=== PATIENT | female | born 1995 | race African-American/Black ===

== ENCOUNTER 2021-11-07 08:50 | Emergency (ER) | payer OTHER ==
--- NOTE | 2021-11-07 09:09 | ED Physician Documentation ---
PD HPI ABD PAIN - Stated complaint Stated Complaint: SPOTTING/ABD PX - Chief complaint Chief Complaint: Abd Pain - History obtained from History obtained from: Patient - Additional information Additional information: 26-year-old G2, with LMP Oct 06 presents with vaginal bleeding in . She went to [facility] 2 days ago for light bleeding, per her description at that time her beta hCG was 600 and her ultrasound was nondiagnostic. Heavier bleeding today. There is no pain. Review of Systems Ten Systems: 10 systems reviewed and negative Constitutional: reports: Reviewed and negative Cardiac: reports: Reviewed and negative Respiratory: reports: Reviewed and negative PD PAST MEDICAL HISTORY - Present Medications Home Medications: Ambulatory Orders Medication Instructions Recorded Confirmed No Known Home Medications 11/07/21 11/07/21 - Allergies Allergies/Adverse Reactions: Allergies Allergy/AdvReac Type Severity Reaction Status Date / Time No Known Drug Allergies Allergy Verified 11/07/21 09:06 PD ED PE NORMAL - Vitals Vital signs reviewed: Yes - General General: Alert and oriented X 3, No acute distress - Cardiac Cardiac: RRR, No murmur - Respiratory Respiratory: No respiratory distress, Clear bilaterally - Abdomen Abdomen: Normal bowel sounds, Soft, Non tender - Derm Derm: Normal color, Warm and dry - Neuro Neuro: Alert and oriented X 3, Normal speech Results - Vitals Vitals: Vital Signs - 24 hr 11/07/21 11/07/21 09:00 10:52 Temperature 36.2 C L Heart Rate 89 75 Respiratory 16 18 Rate Blood Pressure 129/76 123/80 O2 Saturation 100 100 Oxygen O2 Source Room air - Labs Labs: Laboratory Tests 11/07/21 11/07/21 11/07/21 09:18 09:18 09:18 WBC 5.9 RBC 4.48 Hgb 12.7 Hct 38.0 MCV 84.8 MCH 28.3 MCHC 33.4 RDW 13.3 Plt Count 348 MPV 8.9 Neut # (Auto) 3.5 Lymph # (Auto) 1.9 Crisp # (Auto) 0.5 Eos # (Auto) 0.0 Baso # (Auto) 0.0 Absolute Nucleated RBC 0.00 Nucleated RBC % 0.0 Sodium 136 Potassium 3.7 Chloride 102 Carbon Dioxide 27 Anion Gap 7.0 BUN 12 Creatinine 0.7 Estimated GFR (MDRD) 102 Glucose 79 Calcium 9.3 HCG, Quant 635.94 Blood Type 11/07/21 09:18 WBC RBC Hgb Hct MCV MCH MCHC RDW Plt Count MPV Neut # (Auto) Lymph # (Auto) Crisp # (Auto) Eos # (Auto) Baso # (Auto) Absolute Nucleated RBC Nucleated RBC % Sodium Potassium Chloride Carbon Dioxide Anion Gap BUN Creatinine Estimated GFR (MDRD) Glucose Calcium HCG, Quant Blood Type O POSITIVE PD MEDICAL DECISION MAKING - ED course ED course: Blood type O+, continues to have nondiagnostic ultrasound. Discussed with her that the diagnosis is not clear, could be miscarriage in process, ectopic cannot be ruled out. Given the Nonrising beta hCG, normal progression of the is unlikely but not impossible. Departure - Departure Disposition: 01 Home, Self Care Clinical Impression: Threatened Condition: Good Record reviewed to determine appropriate education?: Yes Instructions: ED Miscarriage Poss Comments: Your beta-hCG today is 635. This is similar to the level you reported to me from [facility] from 2 days ago. While that is not diagnostic of loss, it certainly is worrisome that the may not be progressing appropriately. The ultrasound again does not show any sign of , which is neither good nor bad with this level of hormones. Return if you worsen but she should have a repeat ultrasound and lab work done with your doctor in 1 week. Discharge Date/Time: 11/07/21 10:57
[2021-11-07 09:28] LABS: BASOPHILS % (AUTO) 0.3 %; EOSINOPHILS % (AUTO) 0.3 %; HGB - HEMOGLOBIN 12.7 g/dL (12.0-16.0); LYMPHOCYTES # (AUTO) 1.9 10^3/uL (1.5-3.5); LYMPHOCYTES % (AUTO) 31.7 %; MEAN CORPUSCULAR HEMOGLOBIN 28.3 pg (27.0-31.0); MEAN CORPUSCULAR HGB CONC 33.4 g/dL (32.0-36.0); MEAN CORPUSCULAR VOLUME 84.8 fL (81.0-99.0); MEAN PLATELET VOLUME 8.9 fL (7.9-10.8); MONOCYTES # (AUTO) 0.5 10^3/uL (0.0-1.0); NEUTROPHILS # (AUTO) 3.5 10^3/uL (1.5-6.6); NEUTROPHILS % (AUTO) 59.5 %; PLT - PLATELET COUNT 348 10^3/uL (130-450); RED BLOOD COUNT 4.48 10^6/uL (4.20-5.40); RED CELL DISTRIBUTION WIDTH 13.3 % (12.0-15.0); WHITE BLOOD COUNT 5.9 x10^3/uL (4.8-10.8)
[2021-11-07 09:35] LABS: CALCIUM 9.3 mg/dL (8.5-10.3); CREATININE 0.7 mg/dL (0.4-1.0); POTASSIUM 3.7 mmol/L (3.5-5.0)
[2021-11-07 10:53] VITALS: BP 123/80
--- NOTE | 2021-11-07 10:54 | Ultrasound Report ---
PROCEDURE: OB Transvaginal INDICATIONS: VB and preg OUTSIDE/PRIOR DATING DATA: Last menstrual period (LMP): October 03, 2021. LMP-based estimated date of delivery (NIKKI): July 10, 2022. First dating scan (date and location): November 07, 2021. TECHNIQUE: Real-time scanning was performed of the fetus and maternal pelvic organs, with image documentation. COMPARISON: None. FINDINGS: Gestational sac: Not visualized. Cervix: Closed. Maternal organs: A thick-walled lesion is seen in the right ovary, most consistent with a corpus lute al cyst. Small amount of fluid in the right adnexa. IMPRESSION: No sonographic evidence of intrauterine . Reviewed by: Silvestre Jeffers MD on 11/07/2021 10:53 AM [facility] Approved by: Silvestre Jeffers MD on 11/07/2021 10:53 AM [facility] Station ID: [id number]
--- NOTE | 2021-11-07 10:54 | Ultrasound Report ---
PROCEDURE: OB First Trimester INDICATIONS: VB and preg OUTSIDE/PRIOR DATING DATA: Last menstrual period (LMP): October 03, 2021. LMP-based estimated date of delivery (NIKKI): July 10, 2022. First dating scan (date and location): November 07, 2021. TECHNIQUE: Real-time scanning was performed of the fetus and maternal pelvic organs, with image documentation. COMPARISON: None. FINDINGS: Gestational sac: Not visualized. Cervix: Closed. Maternal organs: A thick-walled lesion is seen in the right ovary, most consistent with a corpus lute al cyst. Small amount of fluid in the right adnexa. IMPRESSION: No sonographic evidence of intrauterine . Reviewed by: Silvestre Jeffers MD on 11/07/2021 10:53 AM [facility] Approved by: Silvestre Jfefers MD on 11/07/2021 10:53 AM [facility] Station ID: [id number]
== END 2021-11-07 10:57 | disposition home or self-care (01) ==
LOC: ED 08:50
DX: O20.0 Threatened abortion (principal); Z3A.00 Weeks of gestation of pregnancy not specified
CPT/HCPCS: 36415; 80048; 84702; 85025; 86900; 86901; 99283; 99284